=== PATIENT | female | born 1980 | race African-American/Black ===

== ENCOUNTER 2017-10-21 19:47 | Emergency (ER) | payer SELFPAY ==
[~2017-10-21] VITALS: Ht 157.5 cm; Wt 69.3 kg
[~2017-10-21 19:47] MED LIST: AMOXICILLIN500 M1 PO; CARAFATE1 GM PO; NEXIUM20 MG PO; PRILOSEC20 MG PO; ULTRAM50 MG PO
[2017-10-21] MEDS ORDERED: PREDNISONE10 M1 PO (20:48)
[2017-10-21] MEDS ORDERED: MOTRIN600 MG PO (20:48)
[2017-10-21 20:57] VITALS: BP 117/69
== END 2017-10-21 20:58 | disposition home or self-care (01) ==
LOC: EME 19:47
DX: J02.9 Acute pharyngitis, unspecified (principal); B34.9 Viral infection, unspecified; R53.83 Other fatigue; R05 Cough; J34.89 Other specified disorders of nose and nasal sinuses; R50.9 Fever, unspecified
CPT/HCPCS: 99281; 99283